=== PATIENT | male | born 1965 | race Caucasian/White ===

== ENCOUNTER 2017-12-02 13:32 | Outpatient (CLI) | payer BC ==
--- NOTE | 2017-12-02 16:23 | MRI ---
MRI CERVICAL SPINE WITHOUT CONTRAST 12/02/17 HISTORY: M47.812 - cervical spondylosis without myelopathy. COMPARISON: None. FINDINGS: Cerebellar tonsils terminate above the foramen magnum. Background marrow signal is normal. Paraspinal soft tissues are unremarkable. Levels are as follows: C2-3: Normal disc space. No significant neural foraminal or spinal canal narrowing. C3-4: Circumferential disc space height loss and disc bulge. There is uncinate process hypertrophy. T here is effacement of the ventral CSF space. Canal is narrowed to approximately 8 mm. There is abutme nt of the cord ventrally. No is mild left sided neural foraminal narrowing. C4-5: Circumferential disc bulge with disc space height loss and uncinate process hypertrophy. Spinal canal measures 9 mm. No significant neural foraminal narrowing on the left and mild neural foraminal narrowing on the right. Moderate facet arthrosis. C5-6: Circumferential disc bulge. Mild uncinate process hypertrophy. Effacement of the ventral CSF sp garrett. The spinal canal measures 8 mm. Mild bilateral neural foraminal narrowing. C6-7: Circumferential disc space height loss. Mild posterior disc bulge. Spinal canal measures 8 mm. There is mild facet arthrosis. No significant neural foraminal narrowing. IMPRESSION: Mild spondylosis as described worst at C3-4 with circumferential posterior disc bulge and uncinate pr ocess hypertrophy narrowing the spinal canal to 8 mm with effacement of the ventral CSF space and cor d abutment. POS: [facility]
== END 2017-12-02 13:33 | disposition home or self-care (01) ==
LOC: TBSIIMAG 13:32
PROVIDERS: ATTEND Neurological Surgery
DX: M47.812 Spondylosis without myelopathy or radiculopathy, cervical region (principal); M50.20 Other cervical disc displacement, unspecified cervical region; M48.02 Spinal stenosis, cervical region
CPT/HCPCS: 72141